=== PATIENT | male | born 1985 | race Caucasian/White ===

== ENCOUNTER 2017-06-01 21:22 | Emergency (ER) | payer OTHER ==
[2017-06-01] MEDS ORDERED: fentaNYL 100 MCG/2 ML INJ ONE (21:53)
[2017-06-01] MEDS ORDERED: LORazepam 2 MG/ML INJ IVP ONE (21:53)
[2017-06-01] MEDS ORDERED: fentaNYL 100 MCG/2 ML INJ IVP ONE (21:53)
[2017-06-01] MEDS ORDERED: HYDROCOD/APAP 5/325 PREPACK#6 BTL TAKEHOME ONE (21:56)
--- NOTE | 2017-06-01 21:56 | EDPHY ---
H & P Time Seen by Provider: 06/01/17 21:34 HPI/ROS: CHIEF COMPLAINT: right shoulder pain HISTORY OF PRESENT ILLNESS: 31-year-old male arrives via private vehicle complaining of acute right shoulder pain after he started to slip on some stairs , reached up and grabbed the railing and felt immediate pain in his right shoulder, possible dislocation. Mild paresthesia in his digits. No head injury. PHYSICAL EXAM (Prior to examination, patient consented to physical exam, hands were washed and my usual and customary physical exam procedures followed) 1) GENERAL: Well-developed, well-nourished, alert and oriented. Appears uncomfortable 2) HEAD: Normocephalic 3) HEENT: Pupils equal, round, reactive to light bilaterally. 4) LUNGS: Breathing comfortably. 5) MUSCULOSKELETAL: Lateral step-off at the glenoid and anterior fullness consistent with dislocation. Soft compartments. Normal coloration. 6) SKIN: intact 7) VASCULAR: pulses and cap refill present are brisk 8) NEUROLOGIC: Radial, ulnar, median nerve function intact with no deficits appreciated on exam DIFFERENTIAL DIAGNOSIS: in no particular order including but not limited to fracture, sprain, compartment syndrome After reviewing the patient's x-rays attempt at reduction 10:07 p.m. Procedure: Dislocation reduction. The dislocation of the right shoulder was reduced using traction and counter traction technique without complications. Post reduction the patient's neurovascular exam is normal. Post reduction x-ray demonstrates reduction of the joint to the anatomic position. The procedure was performed by myself. Procedure: Splint A sling was applied by ER emergency medical technician basic. After application of the splint I returned and re-examined the patient. The splint was adequately immobilizing the joint and distal to the splint the patient's circulation and sensation were intact. Patient shows no signs of compartment syndrome. Was given orthopedic precautions. Smoking Status: Never smoked Constitutional: Initial Vital Signs Temperature (C) 37.3 C 06/01/17 21:27 Heart Rate 72 06/01/17 21:27 Respiratory Rate 18 06/01/17 21:27 Blood Pressure 144/82 H 06/01/17 21:27 O2 Sat (%) 98 06/01/17 21:27 O2 Delivery Mode Room Air Allergies/Adverse Reactions: No Known Allergies Allergy (Unverified 06/01/17 21:30) Home Medications: Medication Instructions Recorded NK [No Known Home Meds] 06/01/17 MDM/Departure - MDM Imaging Results: Imaging Impressions Shoulder X-Ray 06/01/17 21:35 Impression: Anterior dislocation right humeral head. Shoulder X-Ray 06/01/17 22:06 Impression: Good position of right humeral head in the glenoid fossa postreduction. Images reviewed myself Medications Given: Discontinued Medications Fentanyl (Sublimaze) 100 mcg IVP EDNOW ONE Stop: 06/01/17 21:54 Last Admin: 06/01/17 22:00 Dose: 100 mcg Lorazepam (Ativan Injection) 1 mg IVP EDNOW ONE Stop: 06/01/17 21:54 Last Admin: 06/01/17 22:00 Dose: 1 mg - Depart Disposition: Home, Routine, Self-Care Clinical Impression: Dislocation of right shoulder joint Qualifiers: Encounter type: initial encounter Qualified Code(s): S43.004A - Unspecified dislocation of right shoulder joint, initial encounter Condition: Good Instructions: Hydrocodone/Acetaminophen (By mouth), Shoulder Dislocation (ED) Additional Instructions: Return to the ER immediately if you experience discoloration, have worsening pain, numbness, tingling, or any other symptoms that concern you. If you received x-rays in the emergency department today, be advised, that ligamentous , tendon, muscular, and other non-bony injury cannot be fully ruled out. Try to keep your affected extremity elevated above the level of your chest, and keep cold packs on the affected area, for the next 48 hours. Referrals: John Amador MD [Medical Doctor] - As per Instructions
[2017-06-01 22:37] VITALS: BP 134/95; PULSE 74; RESP 17; TEMP 98.4; O2SAT 95
== END 2017-06-01 22:49 | disposition home or self-care (01) ==
LOC: EDBD 21:22
PROC: 0RSJXZZ Reposition Right Shoulder Joint, External Approach (ICD-10-PCS; principal; 2017-06-01)
DX: S43.004A Unspecified dislocation of right shoulder joint, initial encounter (principal); W10.9XXA Fall (on) (from) unspecified stairs and steps, initial encounter
CPT/HCPCS: 96374; J2060; J3010